=== PATIENT | female | born 1995 | race Caucasian/White ===

== ENCOUNTER → 2017-06-17 | Outpatient (CLI) | payer OTHER ==
[~2017-06-17] MED LIST: CYSTO-CONRAY II 17.2% 250ML VIAL (Q9958) As Ordered ONE
--- NOTE | 2017-06-18 08:46 | REP ---
VOIDING CYST URETHROGRAM: 06/17/2017 CLINICAL HISTORY: Vesicoureteral reflux with reflux nephropathy. No prior study. FINDINGS: Head Screen Worker film shows moderate retained stool. Bones are grossly intact. There is a density at the level of the L4 disc space on the left between the transverse processes of L4 and L5 just lateral to the disc space. This is not present on the other overhead images throughout and suspect down artifact. No abnormal calcifications. Bones intact. Retrograde filling of the bladder with 450 mL of Cysto-Conray noted. No reflux on maximum filling. Spontaneous voiding performed with bilateral oblique views. They show tiny amounts of grade 1 reflux into the distal ureter only. Above the area of reflux is another small focus of contrast which may be in a diverticulum off the posterior margin of the bladder versus the distal ureters segmentally. This is fairly symmetric on both sides. No persistent filling defects in the bladder. No significant extrinsic mass effect on the bladder. Postvoid image shows the bladder emptied completely. IMPRESSION: 1. There is a minimal amount of grade 1 reflux at the UVJ on both sides. Question of small diverticula posterolaterally on each side versus contrast just above the UVJ segmentally in the ureters. No contrast in the upper pelvic or abdominal ureters or into the collecting system. The postvoid image shows the bladder emptied completely. Signed by Rashad Kurtz MD 06/18/2017 10:10 P
== END ==
LOC: M RADPRO 13:51
PROVIDERS: ATTEND Internal Medicine Nephrology
DX: N13.729 Vesicoureteral-reflux with reflux nephropathy without hydroureter, unspecified (principal); R80.9 Proteinuria, unspecified
CPT/HCPCS: 51600; 74455; Q9958

== ENCOUNTER → 2017-06-28 | Outpatient (REF) | payer OTHER ==
[2017-06-28 14:40] LABS: HYALINE CAST, URINE NONE SEEN /lpf (0-1); MICROSCOPIC EXAM PERFORMED; SQUAMOUS EPITHELIAL CELL URINE SMALL AMOUNT /hpf (SMALL AMT)
[2017-06-28 14:42] LABS: BACTERIA, URINE SMALL AMOUNT; RBC, URINE 0-1 /hpf (0-3); WBC, URINE 0-1 /hpf (0-3)
== END ==
LOC: M LAB REF 13:09
PROVIDERS: ATTEND Internal Medicine Nephrology
DX: Z87.440 Personal history of urinary (tract) infections (principal)